=== PATIENT | male | born 1970 | race Caucasian/White ===

== ENCOUNTER 2021-10-07 01:12 | Emergency (ER) | payer BC ==
--- NOTE | 2021-10-07 01:44 | EDM.PDOC ---
ED HPI GENERAL MEDICAL PROBLEM - General Chief Complaint: Upper Extremity Injury/Pain Stated Complaint: FALL/RT ARM PAIN Time Seen by Provider: 10/07/21 01:19 Source of Information: Reports: Patient, Family () History Limitations: Reports: No Limitations - History of Present Illness INITIAL COMMENTS - FREE TEXT/NARRATIVE: Mr. Lan is a very pleasant 50-year-old gentleman who now presents to the ED with a right shoulder injury. He states that he slipped on ice and fell onto his right shoulder around 01:00 this morning, and was immediately unable to move it. He states that he cannot lift his right upper extremity. He denies any other injuries, including striking his head. He denies having neck pain. No prior right shoulder injury or surgery. The patient acknowledges that he had 10-15 alcoholic beverages tonight. He did not take any ihlb-njd-aacrdth or home remedies prior to coming to the ED. At triage, the patient's initial BP was found to be mildly elevated at 145/101, otherwise, he is hemodynamically stable, afebrile, saturating 97% on room air. He appears to be comfortable, in no acute distress. The patient reports that he has had a cough without fever for the past 4 to 5 days. Otherwise, prior to this morning's injury, the patient denies having a recent fever, chills, sore throat, ear pain, nasal or sinus congestion, cough, dyspnea, chest pain, palpitations, nausea, vomiting, constipation, diarrhea, abdominal pain, urinary symptoms, recent weight gain or weight loss, recent bloody bowel movements or black bowel movements, recent joint aches, headaches, or rashes. The patient's PCP is Ashly Coombs NP. He has received one Moderna COVID vaccination, as well as an influenza vaccination this season. Right Shoulder Pain Score (Numeric/FACES): 9 - Related Data Allergies Allergy/AdvReac Type Severity Reaction Status Date / Time No Known Allergies Allergy Verified 10/07/21 01:27 Home Meds: Home Meds Empagliflozin [Jardiance] 25 mg PO DAILY 10/07/21 [History] Enalapril Maleate [Vasotec] 20 mg PO DAILY 10/07/21 [History] Escitalopram [Lexapro] 10 mg PO DAILY 10/07/21 [History] Rosuvastatin [Crestor] 20 mg PO DAILY 10/07/21 [History] Semaglutide [Ozempic] 1 injection SQ DAILY 10/07/21 [History] metFORMIN HCl [Metformin HCl] 1,000 mg PO BID 10/07/21 [History] Past Medical History Cardiovascular History: Reports: High Cholesterol (untreated), Hypertension Psychiatric History: Reports: Depression Endocrine/Metabolic History: Reports: Diabetes, Type II, Obesity/BMI 30+ - Past Surgical History HEENT Surgical History: Reports: Tonsillectomy Social & Family History - Tobacco Use Tobacco Use Status *Q: Current Some Day Tobacco User - Alcohol Use Alcohol Use History: Yes Alcohol Use Frequency: Socially (occasionally to excess) - Recreational Drug Use Recreational Drug Use: No - Living Situation & Occupation Living situation: Reports: , with Spouse, with Family (18 yr old son) Occupation: Employed ([employer], [employer]) Review of Systems - Review of Systems Review Of Systems: Comprehensive ROS is negative, except as noted in HPI. ED EXAM, GENERAL - Physical Exam Exam: See Below Exam Limited By: No Limitations General Appearance: Alert, WD/WN, No Apparent Distress Neck: Normal Inspection, Supple, Non-Tender, Full Range of Motion Respiratory/Chest: Chest Non-Tender, Other (No clavicle tenderness or palpable abnormality) Extremities: Other (No visible abnormality to the right shoulder, when compared to the left, such as swelling, erythema, ecchymosis, or abrasion. Minimal, if any, tenderness to palpation of the shoulder directly, however, pain is induced with attempts at abduction, extension, flexion, external rotation, or internal ro) Course - Vital Signs Last Recorded V/S: Last Vital Signs Temp 35.8 C L 10/07/21 01:24 Pulse 81 10/07/21 01:24 Resp 18 10/07/21 01:24 BP 145/101 H 10/07/21 01:24 Pulse Ox 97 10/07/21 01:24 - Orders/Labs/Meds Orders: Active Orders 24 hr Category Date Time Status Humerus Rt [CR] Stat Exams 10/07/21 01:30 Taken Shoulder Comp Rt [CR] Stat Exams 10/07/21 01:30 Taken - Re-Assessments/Exams Free Text/Narrative Re-Assessment/Exam: 10/07/21 01:39 X-rays of the right shoulder and right humerus were ordered at triage. The patient declined an offer for pain medication at this time. 10/07/21 02:55 3-view radiographs of the right shoulder appear to demonstrate a comminuted fracture of the humeral head. I am unable to see if the head is dislocated from the glenoid fossa. Formal read per the Radiologist pending. 2-view radiographs of the right humerus appear to demonstrate a comminuted fracture of the humeral head. Formal read per the Radiologist pending. Based on the above, I will order a right shoulder sling. 10/07/21 03:00 X-ray results discussed with the patient and his . I will discharge the patient home with instructions to take OTC ibuprofen [id number], with food, and Percocet as needed for pain not relieved by ibuprofen. He is to wear the shoulder sling during all waking hours. I will refer him to Dr. Canseco for Ortho follow-up. Departure - Departure Time of Disposition: 03:03 Disposition: Home, Self-Care 01 Condition: Good Clinical Impression: Right humeral fracture - Discharge Information *PRESCRIPTION DRUG MONITORING PROGRAM REVIEWED*: Not Applicable *COPY OF PRESCRIPTION DRUG MONITORING REPORT IN PATIENT ROSIO: Not Applicable Referrals: Ashly Coombs NP [Primary Care Provider] - Jamey Canseco MD [Physician] - Forms: ED Department Discharge Additional Instructions: You were seen in the emergency room after slipping on ice and falling onto your right shoulder. Work-up in the ER included x-rays of your right shoulder and right humerus. The x-rays confirmed that you have shattered your right humeral head. Your right arm has been placed into an arm sling. Wear this during all waking hours. We recommend you take sgkq-[id number] ibuprofen, 3 tablets (600 mg) up to every 8 hours, with food, tkxmfw-[id number]-xcius initially, then as needed for discomfort. A prescription for the opioid pain reliever Percocet has been provided to you via [facility]. Take 1 to 2 tablets of Percocet up to every 6-8 hours, as needed for pain not relieved by ibuprofen. If you take Percocet, do not drive or operate heavy machinery for 12 hours afterwards. Percocet may cause constipation, so consider taking a stool softener. Please follow-up with the Orthopedic Surgeon Dr. Jamey Canseco at the next available appointment. Please call his office this coming 10/09/2021. Make sure that the front desk receptionist understands that you are following up from the ER. If any other problems, please do not hesitate to return to the ER. Sepsis Event Note (ED) - Evaluation Sepsis Screening Result: No Definite Risk - Focused Exam Vital Signs: Vital Signs Temp Pulse Resp BP Pulse Ox 10/07/21 01:24 35.8 C L 81 18 145/101 H 97 - My Orders Last 24 Hours: My Active Orders 10/07/21 01:30 Humerus Rt [CR] Stat Shoulder Comp Rt [CR] Stat - Assessment/Plan Last 24 Hours: My Active Orders 10/07/21 01:30 Humerus Rt [CR] Stat Shoulder Comp Rt [CR] Stat
[2021-10-07] MEDS ORDERED: Acetaminophen/oxyCODONE 325-5 MG Tab PO ONE (03:01)
[2021-10-07] MEDS ORDERED: Ibuprofen 600 MG Tab PO ONE (03:01)
--- NOTE | 2021-10-09 13:45 | CR ---
EXAM: XR SHOULDER MINIMUM 2 VIEWS RIGHT, XR HUMERUS 2 VIEWS RIGHT LOCATION: [facility] [employer] [place] DATE/TIME: 10/07/2021 1:46 AM INDICATION: Pain and injury or trauma: blunt trauma (contusions or hematomas); patient hx: fall. Unable to move right shoulder/arm. COMPARISON: None. IMPRESSION: Acute comminuted moderately displaced fracture of the right humeral head and surgical neck with anterosuperior displacement of the humeral head. The humeral head remains normally located. Moderate AC joint arthrosis. SIGNED BY: Hector Starks MD 10/09/2021 2:04 PM DIRK
--- NOTE | 2021-10-09 13:47 | CR ---
EXAM: XR SHOULDER MINIMUM 2 VIEWS RIGHT, XR HUMERUS 2 VIEWS RIGHT LOCATION: [facility] [employer] [place] DATE/TIME: 10/07/2021 1:46 AM INDICATION: Pain and injury or trauma: blunt trauma (contusions or hematomas); patient hx: fall. Unable to move right shoulder/arm. COMPARISON: None. IMPRESSION: Acute comminuted moderately displaced fracture of the right humeral head and surgical neck with anterosuperior displacement of the humeral head. The humeral head remains normally located. Moderate AC joint arthrosis. SIGNED BY: Hector Starks MD 10/09/2021 2:04 PM DIRK
== END 2021-10-07 03:22 | disposition home or self-care (01) ==
LOC: JD.ED 01:12
DX: S42.291A Other displaced fracture of upper end of right humerus, initial encounter for closed fracture (principal); E78.00 Pure hypercholesterolemia, unspecified; I10 Essential (primary) hypertension; E11.9 Type 2 diabetes mellitus without complications; E66.9 Obesity, unspecified; Z79.84 Long term (current) use of oral hypoglycemic drugs; Z79.899 Other long term (current) drug therapy; Z68.42 Body mass index [BMI] 45.0-49.9, adult; Z72.0 Tobacco use; W01.0XXA Fall on same level from slipping, tripping and stumbling without subsequent striking against object, initial encounter
CPT/HCPCS: 73030; 73060; 99283; A9270

== ENCOUNTER 2025-02-11 06:52 | Day surgery (SDC) | payer OTHER ==
[~2025-02-11 06:52] MED LIST: Lactated Ringers 1,000 ML IV SCH; Sodium Chloride 0.9% 10 ML Syringe FLUSH PRN; Sodium Chloride 0.9% 10 ML Syringe FLUSH SCH
[2025-02-11] MEDS: Lactated Ringers 1,000 ML IV SCH (07:25)
[2025-02-11] MEDS ORDERED: propofoL 500 MG/50 ML 50 ML ONE (08:21)
[2025-02-11] MEDS ORDERED: Glycopyrrolate 0.2 MG/ML 2 ML SDV ONE (08:21)
[2025-02-11] MEDS ORDERED: Lidocaine 2% 5 ML SDV ONE (08:21)
== END 2025-02-11 09:35 | disposition home or self-care (01) ==
LOC: JD.SDS 06:52
PROVIDERS: ATTEND Surgery
DX: Z12.11 Encounter for screening for malignant neoplasm of colon (principal); K57.30 Diverticulosis of large intestine without perforation or abscess without bleeding; E11.9 Type 2 diabetes mellitus without complications; I10 Essential (primary) hypertension; E78.00 Pure hypercholesterolemia, unspecified; Z79.84 Long term (current) use of oral hypoglycemic drugs; Z79.85 Long-term (current) use of injectable non-insulin antidiabetic drugs; Z79.899 Other long term (current) drug therapy; Z86.0100 Personal history of colon polyps, unspecified
CPT/HCPCS: J1596; J2003; J2704; J7120